=== PATIENT | male | born 1985 | race Caucasian/White ===

== ENCOUNTER 2016-10-27 08:22 | Emergency (ER) | payer SELFPAY ==
[2016-10-27] MEDS ORDERED: Ketorolac 60 MG/2 ML SDV IM ONE (08:38)
--- NOTE | 2016-10-27 08:43 | EDM.PDOC ---
ED HPI GENERAL MEDICAL PROBLEM - General Chief Complaint: Back Pain or Injury Stated Complaint: FELL, HURT BACK Time Seen by Provider: 10/27/16 08:35 - History of Present Illness INITIAL COMMENTS - FREE TEXT/NARRATIVE: HISTORY AND PHYSICAL: History of present illness: The patient is a healthy 31-year-old male who presents after slipping and falling on wet stairs while at home landing on his mid back. The patient states he was in good health with no systemic complaints prior to these events and impacted his butt and his mid back area but does not have any pain to his buttocks or his lower back and complains of pain mostly in the midthoracic area off to the right. He has no weakness he did not hit his head pass out or blackout and has no neck or head pain. He states the pain is worse with movements and it does not radiate to his legs. Patient has a history of a "pinched nerve in his back" for which he was treated with anti-inflammatories and muscle relaxers but he does not have any formal back diagnosis. He has no discrete flank pain and no weakness numbness or tingling in his lower extremities. He has no chest pain or rib pain. He is not short of breath and took no medications prior to coming here Review of systems: As per history of present illness and below otherwise all systems reviewed and negative. Past medical history: As per history of present illness and as reviewed below otherwise noncontributory. Surgical history: As per history of present illness and as reviewed below otherwise noncontributory. Social history: No reported history of drug or alcohol abuse. Family history: As per history of present illness and as reviewed below otherwise noncontributory. Physical exam: Gen.: Well-developed well-nourished man who is nontoxic and moves easily in the ED. Vital signs been noted by me HEENT: Atraumatic, normocephalic, negative for conjunctival pallor or scleral icterus, mucous membranes moist, throat clear, neck supple, nontender, trachea midline. There are no midline step-off surface defects of the cervical spine Lungs: Clear to auscultation, breath sounds equal bilaterally, chest nontender. No bony rib tenderness in the upper right back but in the lower ribs there is some questionable tenderness on palpation without crepitus deformities ecchymosis or erythema Heart: S1S2, regular, negative for clicks, rubs, or JVD. Abdomen: Soft, nondistended, nontender. Negative for costovertebral tenderness. Pelvis: Stable nontender. Genitourinary: Deferred. Rectal: Deferred. Extremities: Atraumatic, negative for cords or calf pain. Neurovascular unremarkable. Full range of motion without defects or deficits Neuro: Awake, alert, oriented. Cranial nerves II through XII unremarkable. Cerebellum unremarkable. Motor and sensory unremarkable throughout. Exam nonfocal. Dorsi and plantar flexion is 5/5 bilaterally inclusive of the great toe Back: There are no midline step-off surface defects of the thoracic or lumbar spine no soft tissue swelling erythema ecchymosis or injury is visualized. There is tenderness just to the right side of the thoracic spine and the lower rib area without palpable deformities. Diagnostics: X-ray thoracic spine and right ribs Therapeutics: Toradol Impression: Fall with right thoracic spine contusion Definitive disposition and diagnosis as appropriate pending reevaluation and review of above. Right Back Pain Score (Numeric/FACES): 7 - Related Data Allergies Allergy/AdvReac Type Severity Reaction Status Date / Time latex Allergy Hives Verified 10/27/16 08:35 Home Meds: Home Meds . [No Known Home Meds] 10/27/16 [History] ED ROS GENERAL - Review of Systems Review Of Systems: ROS reveals no pertinent complaints other than HPI. ED EXAM, GENERAL - Physical Exam Exam: See Below (See dictation) Course - Vital Signs Last Recorded V/S: Last Vital Signs Temp 36.2 C 10/27/16 08:37 Pulse 75 10/27/16 08:37 Resp 18 10/27/16 08:37 BP 134/74 10/27/16 08:37 Pulse Ox 97 10/27/16 08:37 - Orders/Labs/Meds Meds: Medications Discontinued Medications Generic Name Dose Route Start Last Admin Trade Name Freq PRN Reason Stop Dose Admin Ketorolac Tromethamine 60 mg 10/27/16 08:38 10/27/16 08:50 Toradol IM 10/27/16 08:39 60 mg ONETIME ONE Administration Departure - Departure Time of Disposition: 10:30 Disposition: Home, Self-Care 01 Condition: Good Clinical Impression: Contusion of back Qualifiers: Encounter type: initial encounter Laterality: right Qualified Code(s): S20.221A - Contusion of right back wall of thorax, initial encounter - Discharge Information Forms: ED Department Discharge Additional Instructions: The following information is given to patients seen in the emergency department who are being discharged to home. This information is to outline your options for follow-up care. We provide all patients seen in our emergency department with a follow-up referral. The need for follow-up, as well as the timing and circumstances, are variable depending upon the specifics of your emergency department visit. If you don't have a primary care physician on staff, we will provide you with a referral. We always advise you to contact your personal physician following an emergency department visit to inform them of the circumstance of the visit and for follow-up with them and/or the need for any referrals to a consulting specialist. The emergency department will also refer you to a specialist when appropriate. This referral assures that you have the opportunity for followup care with a specialist. All of these measure are taken in an effort to provide you with optimal care, which includes your followup. Under all circumstances we always encourage you to contact your private physician who remains a resource for coordinating your care. When calling for followup care, please make the office aware that this follow-up is from your recent emergency room visit. If for any reason you are refused follow-up, please contact the [facility] emergency department at and ask to speak to the emergency department charge nurse. [facility] Primary care- Internal Medicine and Family [address] [address] Use ice to areas of pain and try to stretch and open the area to prevent muscle spasm. Use vacations as prescribed and needed. Follow-up with primary care and return to ER as needed and as discussed
--- NOTE | 2016-10-27 10:17 | CR ---
EXAMINATION: Thoracic spine HISTORY: Fall COMPARISON: None TECHNIQUE: AP and lateral views FINDINGS: The thoracic spinal alignment is normal. The vertebral body heights and disc spaces appear well-maintained. There is no fracture or dislocation. The vertebral body heights and disc spaces ap pear well-maintained. IMPRESSION: Grossly unremarkable thoracic spine.
--- NOTE | 2016-10-27 10:19 | CR ---
EXAMINATION: Right RIBS HISTORY: Fall COMPARISON: None TECHNIQUE: 2 views FINDINGS/IMPRESSION: There is no acute osseous abnormality or displaced rib fracture identified. Bon e mineralization appears normal. No pleural effusion or pneumothorax.
[2016-10-27 10:46] VITALS: BP 157/73
== END 2016-10-27 10:43 | disposition home or self-care (01) ==
LOC: MW.ED 08:22
DX: S20.221A Contusion of right back wall of thorax, initial encounter (principal); Z91.040 Latex allergy status; W10.8XXA Fall (on) (from) other stairs and steps, initial encounter; Y92.009 Unspecified place in unspecified non-institutional (private) residence as the place of occurrence of the external cause
CPT/HCPCS: 71100; 72072; 96372; 99283; J1885

== ENCOUNTER 2016-11-11 15:47 | Emergency (ER) | payer SELFPAY ==
[2016-11-11] MEDS ORDERED: Aspirin 81 MG Tab.Chew PO ONE (15:59)
[2016-11-11] MEDS ORDERED: Famotidine 20 MG/2 ML SDV IVPUSH ONE (15:59)
[2016-11-11] MEDS ORDERED: Sodium Chloride 0.9% 2.5 ML Syringe FLUSH PRN (15:59)
[2016-11-11] MEDS ORDERED: Sodium Chloride 0.9% 1,000 ML IV ONE (15:59)
[2016-11-11] MEDS ORDERED: Sodium Chloride 0.9% 10 ML Syringe FLUSH PRN (15:59)
--- NOTE | 2016-11-11 16:05 | EDM.PDOC ---
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 Past medical history: As per history of present illness and as reviewed below otherwise noncontributory. Surgical history: As per history of present illness and as reviewed below otherwise noncontributory. Social history: No reported history of drug or alcohol abuse. Family history: As per history of present illness and as reviewed below otherwise noncontributory. Physical exam: Alert and oriented male speaking somewhat breath only in full sentences. Strong odor of tobacco present. HEENT: Atraumatic, normocehpalic, pupils reactive, negative for conjunctival pallor or scleral icterus, mucous membranes dry, throat clear, neck supple, nontender, trachea midline. Tongue is coated. Lungs: Clear to auscultation, breath sounds equal bilaterally, chest non tender. Shallow diminished bilaterally Heart: S1S2, regular, negative for clicks, rubs, or JVD. Abdomen: Soft, nondistended, nontender. Negative for masses or hepatossplenmegaly. Negative for costovertebral tenderness. Pelvis: Stable nontender. Genitourinary: Deferred. Rectal: Deferred Extremities: Atraumatic, negative for cords or calf pain. Neurovascular unremarkable. Neuro: Awake, alert, oriented. Cranial nerves II through XII unremarkable. Cerebellum unremarkable. Motor and sensory unremarkable throughout. Exam nonfocal. Neurologic grossly intact. Full strength to all extremities Discussed with patient all the negative reports nothing to indicate cardiovascular incident or stroke Patient refuses urine sample Diagnostics: [CBC CMP troponin amylase lipase urine drug screen UA] Therapeutics: [] Impression: [Mild dehydration/hyper-ventilation] Plan: [Home and rest today Follow up with your primary care provider return to the emergency room should her symptoms worsen ] Definitive disposition and diagnosis as appropriate pending reevaluation and review of above. Onset: Gradual Duration: Day(s): (3) - Related Data Allergies Allergy/AdvReac Type Severity Reaction Status Date / Time latex Allergy Hives Verified 11/11/16 15:57 Home Meds: Home Meds . [No Known Home Meds] 10/27/16 [History] Past Medical History - Past Health History Medical/Surgical History: Denies Medical/Surgical History HEENT History: Reports: None Cardiovascular History: Reports: None Respiratory History: Reports: Asthma Gastrointestinal History: Reports: None Genitourinary History: Reports: None Musculoskeletal History: Reports: Other (See Below) Other Musculoskeletal History: Hx sciatica Neurological History: Reports: None Psychiatric History: Reports: None Endocrine/Metabolic History: Reports: None Hematologic History: Reports: None Immunologic History: Reports: None Oncologic (Cancer) History: Reports: None Dermatologic History: Reports: None - Infectious Disease History Infectious Disease History: Reports: Chicken Pox - Past Surgical History Head Surgeries/Procedures: Reports: None Social & Family History - Family History Family Medical History: Noncontributory - Tobacco Use Smoking Status *Q: Current Every Day Smoker Years of Tobacco use: 17 Packs/Tins Daily: 0.5 - Recreational Drug Use Recreational Drug Use: No ED ROS GENERAL - Review of Systems Review Of Systems: ROS reveals no pertinent complaints other than HPI. ED EXAM, GENERAL - Physical Exam Exam: See Below (See dictation) Course - Vital Signs Last Recorded V/S: Last Vital Signs Temp 36.4 C 11/11/16 15:54 Pulse 104 H 11/11/16 15:54 Resp 24 H 11/11/16 15:54 BP 138/96 H 11/11/16 15:54 Pulse Ox 98 11/11/16 15:54 - Orders/Labs/Meds Orders: Active Orders 24 hr Category Date Time Status Cardiac Monitoring [RC] . DIRECTED Care 11/11/16 15:59 Active EKG Documentation Completion [RC] STAT Care 11/11/16 15:59 Active Oxygen Therapy [RC] ASDIRECTED Care 11/11/16 15:59 Active DRUG SCREEN, URINE [URCHEM] Stat Lab 11/11/16 16:01 Uncollected UA W/MICROSCOPIC [URIN] Stat Lab 11/11/16 15:59 Uncollected Sodium Chloride 0.9% [Saline Flush] Med 11/11/16 15:59 Active 10 ml FLUSH ASDIRECTED PRN Sodium Chloride 0.9% [Saline Flush] Med 11/11/16 15:59 Active 2.5 ml FLUSH ASDIRECTED PRN Saline Lock Insert [OM.PC] Stat Oth 11/11/16 15:59 Ordered Medication Orders Sodium Chloride (Saline Flush) 10 ml FLUSH ASDIRECTED PRN PRN Reason: Keep Vein Open Sodium Chloride (Saline Flush) 2.5 ml FLUSH ASDIRECTED PRN PRN Reason: Keep Vein Open Labs: Laboratory Tests 11/11/16 11/11/16 11/11/16 Range/Units 16:04 16:04 16:04 WBC 12.44 H (4.0-11.0) K/uL RBC 5.43 (4.50-5.90) M/uL Hgb 16.7 (13.0-17.0) g/dL Hct 46.5 (38.0-50.0) % MCV 85.6 (80.0-98.0) fL MCH 30.8 (27.0-32.0) pg MCHC 35.9 (31.0-37.0) g/dL RDW Std Deviation 39.8 (28.0-62.0) fl RDW Coeff of Susan 13 (11.0-15.0) % Plt Count 250 (150-400) K/uL MPV 10.00 (7.40-12.00) fL Neut % (Auto) 65.6 (48.0-80.0) % Lymph % (Auto) 21.3 (16.0-40.0) % [place] % (Auto) 12.0 (0.0-15.0) % Eos % (Auto) 0.9 (0.0-7.0) % Baso % (Auto) 0.2 (0.0-1.5) % Neut # (Auto) 8.2 H (1.4-5.7) K/uL Lymph # (Auto) 2.7 H (0.6-2.4) K/uL [place] # (Auto) 1.5 H (0.0-0.8) K/uL Eos # (Auto) 0.1 (0.0-0.7) K/uL Baso # (Auto) 0.0 (0.0-0.1) K/uL Nucleated RBC % 0.0 /100WBC Nucleated RBCs # 0 K/uL Sodium 136 (136-146) mmol/L Potassium 3.9 (3.5-5.1) mmol/L Chloride 105 (98-110) mmol/L Carbon Dioxide 17 L (21-31) mmol/L BUN 29 H (6.0-23.0) mg/dL Creatinine 1.2 (0.6-1.5) mg/dL Est Cr Clr Drug Dosing 86.38 mL/min Estimated GFR (MDRD) > 60.0 ml/min Glucose 98 (60-110) mg/dL Calcium 10.0 (8.8-10.8) mg/dL Total Bilirubin 1.6 H (0.1-1.5) mg/dL AST 35 (5-40) IU/L ALT 27 (8-54) IU/L Alkaline Phosphatase 55 (40-150) Troponin I < 0.10 (0.0-0.29) NG/ML Total Protein 8.7 H (6.0-8.0) g/dL Albumin 4.9 (3.5-5.0) g/dL Globulin 3.8 H (2.0-3.5) g/dL Albumin/Globulin Ratio 1.3 (1.3-2.8) Amylase 42 (10-90) U/L Lipase 20 (7-80) U/L Meds: Medications Generic Name Dose Route Start Last Admin Trade Name Freq PRN Reason Stop Dose Admin Sodium Chloride 10 ml 11/11/16 15:59 Saline Flush FLUSH ASDIRECTED PRN Keep Vein Open Sodium Chloride 2.5 ml 11/11/16 15:59 Saline Flush FLUSH ASDIRECTED PRN Keep Vein Open Discontinued Medications Generic Name Dose Route Start Last Admin Trade Name Freq PRN Reason Stop Dose Admin Aspirin 324 mg 11/11/16 15:59 11/11/16 16:23 Aspirin PO 11/11/16 16:00 324 mg ONETIME ONE Administration Famotidine 20 mg 11/11/16 15:59 11/11/16 16:25 Pepcid IVPUSH 11/11/16 16:00 20 mg ONETIME ONE Administration Sodium Chloride 1,000 mls @ 999 mls/hr 11/11/16 15:59 11/11/16 16:22 Normal Saline IV 11/11/16 16:59 999 mls/hr .Bolus ONE Administration Departure - Departure Time of Disposition: 17:22 Disposition: Home, Self-Care 01 Condition: Good Clinical Impression: Hyperventilation, Dehydration - Discharge Information Forms: ED Department Discharge - My Orders Last 24 Hours: My Active Orders 11/11/16 15:59 Cardiac Monitoring [RC] . DIRECTED EKG Documentation Completion [RC] STAT Oxygen Therapy [RC] ASDIRECTED UA W/MICROSCOPIC [URIN] Stat Sodium Chloride 0.9% [Saline Flush] 10 ml FLUSH ASDIRECTED PRN Sodium Chloride 0.9% [Saline Flush] 2.5 ml FLUSH ASDIRECTED PRN Saline Lock Insert [OM.PC] Stat 11/11/16 16:01 DRUG SCREEN, URINE [URCHEM] Stat - Assessment/Plan Last 24 Hours: My Active Orders 11/11/16 15:59 Cardiac Monitoring [RC] . DIRECTED EKG Documentation Completion [RC] STAT Oxygen Therapy [RC] ASDIRECTED UA W/MICROSCOPIC [URIN] Stat Sodium Chloride 0.9% [Saline Flush] 10 ml FLUSH ASDIRECTED PRN Sodium Chloride 0.9% [Saline Flush] 2.5 ml FLUSH ASDIRECTED PRN Saline Lock Insert [OM.PC] Stat 11/11/16 16:01 DRUG SCREEN, URINE [URCHEM] Stat
--- NOTE | 2016-11-11 16:28 | CR ---
EXAMINATION: Portable chest radiograph. HISTORY: Shortness of breath. FINDINGS: The trachea is midline. The cardiomediastinal silhouette is within normal limits. No pulmonary infil trates, effusions or pneumothorax. Osseous structures appear unremarkable. IMPRESSION: No acute cardiopulmonary process.
[2016-11-11 16:39] LABS: CHLORIDE,CL 105 mmol/L (98-110); SODIUM,NA 136 mmol/L (136-146)
[2016-11-11 22:52] VITALS: BP 118/63
== END 2016-11-11 17:37 | disposition home or self-care (01) ==
LOC: MW.ED 15:47
DX: F45.8 Other somatoform disorders (principal); E86.0 Dehydration; J45.909 Unspecified asthma, uncomplicated; F17.210 Nicotine dependence, cigarettes, uncomplicated; Z91.040 Latex allergy status
CPT/HCPCS: 36415; 71010; 80053; 82150; 83690; 84484; 85025; 93005; 96361; 96374; 99285; A9270; J7040; 99284

== ENCOUNTER 2017-02-19 16:16 | Emergency (ER) | payer OTHER ==
[2017-02-19] MEDS ORDERED: Lidocaine 2% Viscous Solution 15 ML Cup PO ONE (16:51)
[2017-02-19] MEDS ORDERED: Benzocaine 20% Topical Spray UD MUCMEM ONE (16:51)
--- NOTE | 2017-02-19 16:52 | EDM.PDOC ---
ED HPI GENERAL MEDICAL PROBLEM - General Chief Complaint: ENT Problem Stated Complaint: TOOTHACHE Time Seen by Provider: 02/19/17 16:48 Source of Information: Reports: Patient History Limitations: Reports: No Limitations - History of Present Illness INITIAL COMMENTS - FREE TEXT/NARRATIVE: HISTORY AND PHYSICAL: [] 31-year-old male presenting with a fractured tooth History of Present Illness: []Patient states it was hurting prior to yesterday ago but he broke off that piece yesterday tooth is #18 Review of Systems: As per history of present illness and below otherwise all systems reviewed and negative. Past medical history: As per history of present illness and as reviewed below otherwise noncontributory. Surgical history: As per history of present illness and as reviewed below otherwise noncontributory. Social history: No reported history of drug or alcohol abuse. Family history: As per history of present illness and as reviewed below otherwise noncontributory. Physical exam: Alert male who answers questions appropriately not short of breath with speaking is nontoxic in appearance. HEENT: Atraumatic, normocehpalic, pupils reactive, negative for conjunctival pallor or scleral icterus, mucous membranes moist, throat clear, neck supple, nontender, trachea midline. Tooth #18 missing and third of the tooth. Patient denies pain with air hitting his tooth .Patient is refusing to have packing placed. Mild edema is noted with them to the mandible. Lungs: Clear to auscultation, breath sounds equal bilaterally, chest non tender. Heart: S1S2, regular, negative for clicks, rubs, or JVD. Abdomen: Soft, nondistended, nontender. Negative for masses or hepatossplenmegaly. Negative for costovertebral tenderness. Pelvis: Stable nontender. Genitourinary: Deferred. Rectal: Deferred Extremities: Atraumatic, negative for cords or calf pain. Neurovascular unremarkable. Neuro: Awake, alert, oriented. Cranial nerves II through XII unremarkable. Cerebellum unremarkable. Motor and sensory unremarkable throughout. Exam nonfocal. Diagnostics: [] Therapeutics: [Dental balls] Impression: [Fracture tooth] Plan: [Discharged to home Antibiotic therapy amoxicillin Follow-up with your dentist as previously scheduled for next week] Definitive disposition and diagnosis as appropriate pending reevaluation and review of above. toothache Pain Score (Numeric/FACES): 10 - Related Data Allergies Allergy/AdvReac Type Severity Reaction Status Date / Time latex Allergy Hives Verified 02/19/17 16:38 tramadol Allergy Nausea and Verified 02/19/17 16:38 Vomiting Home Meds: Home Meds . [No Known Home Meds] 10/27/16 [History] Past Medical History - Past Health History Medical/Surgical History: Denies Medical/Surgical History HEENT History: Reports: None Cardiovascular History: Reports: None Respiratory History: Reports: Asthma Gastrointestinal History: Reports: None Genitourinary History: Reports: None Musculoskeletal History: Reports: Other (See Below) Other Musculoskeletal History: Hx sciatica Neurological History: Reports: None Psychiatric History: Reports: None Endocrine/Metabolic History: Reports: None Hematologic History: Reports: None Immunologic History: Reports: None Oncologic (Cancer) History: Reports: None Dermatologic History: Reports: None - Infectious Disease History Infectious Disease History: Reports: None - Past Surgical History Head Surgeries/Procedures: Reports: None Social & Family History - Family History Family Medical History: Noncontributory - Tobacco Use Smoking Status *Q: Current Every Day Smoker Years of Tobacco use: 17 Packs/Tins Daily: 0.5 - Caffeine Use Caffeine Use: Reports: Energy Drinks - Recreational Drug Use Recreational Drug Use: No ED ROS ENT - Review of Systems Review Of Systems: ROS reveals no pertinent complaints other than HPI. ED EXAM, ENT - Physical Exam Exam: See Below (see dictation) Course - Vital Signs Last Recorded V/S: Last Vital Signs Temp 36.6 C 02/19/17 16:38 Pulse 71 02/19/17 16:38 Resp 18 02/19/17 16:38 BP 138/92 H 02/19/17 16:38 Pulse Ox 98 02/19/17 16:38 Departure - Departure Time of Disposition: 16:51 Disposition: Home, Self-Care 01 Condition: Good Clinical Impression: Fracture of tooth Qualifiers: Encounter type: initial encounter Fracture type: closed Qualified Code(s): S02.5XXA - Fracture of tooth (traumatic), initial encounter for closed fracture - Discharge Information Referrals: PCP,None [Primary Care Provider] -
[2017-02-19 17:09] VITALS: BP 155/102
== END 2017-02-19 17:00 | disposition home or self-care (01) ==
LOC: MW.ED 16:16
DX: K03.81 Cracked tooth (principal); F17.210 Nicotine dependence, cigarettes, uncomplicated; Z91.040 Latex allergy status; Z88.5 Allergy status to narcotic agent
CPT/HCPCS: 99282; A9270; 99283

== ENCOUNTER 2017-06-20 08:00 | Emergency (ER) | payer SELFPAY ==
[2017-06-20] MEDS ORDERED: Ondansetron 4 MG Tab.DIS PO ONE (08:17)
--- NOTE | 2017-06-20 08:20 | EDM.PDOC ---
ED HPI GENERAL MEDICAL PROBLEM - General Chief Complaint: General Stated Complaint: fever, vomiting sore throat, body chills Time Seen by Provider: 06/20/17 08:10 - History of Present Illness INITIAL COMMENTS - FREE TEXT/NARRATIVE: HISTORY AND PHYSICAL: History of present illness: The patient is a 31-year-old male who presents with a 2 day history of cough fever and body aches nausea intermittent vomiting for which he like to be evaluated. The patient said he had a fever this morning and he took medications and now he is afebrile. He's had a cough productive of some phlegm and he has a history of smoking. He has no ill contacts at home but he did not get his flu shot this year. He does not have a specific runny nose but he does have the sore throat and no abdominal pain chest pain or shortness of breath. Patient told nursing that he was having vomiting when I discussed this with them it is intermittent and is able to tolerate fluids and eat in between. Review of systems: As per history of present illness and below otherwise all systems reviewed and negative. Past medical history: As per history of present illness and as reviewed below otherwise noncontributory. Surgical history: As per history of present illness and as reviewed below otherwise noncontributory. Social history: No reported history of drug or alcohol abuse. Family history: As per history of present illness and as reviewed below otherwise noncontributory. Physical exam: Gen.: Well-developed well-nourished man who is nontoxic and speaking clearly in the ED without hoarse or muffled voice and no breathlessness. He is afebrile with stable vitals HEENT: Atraumatic, normocephalic, pupils reactive, negative for conjunctival pallor or scleral icterus, mucous membranes moist, throat clear, neck supple, nontender, trachea midline. The posterior oropharynx is slightly reddened but there are no exudates and there is no cervical adenopathy or nuchal rigidity Lungs: Clear to auscultation, breath sounds equal bilaterally, chest nontender. No wheezing stridor or work of breathing Heart: S1S2, regular rate and rhythm no overt murmurs Abdomen: Soft, nondistended, nontender. NABS. Pelvis: Stable nontender. Genitourinary: Deferred. Rectal: Deferred. Extremities: Atraumatic, negative for cords or calf pain. Neurovascular unremarkable. Neuro: Awake, alert, oriented. Cranial nerves II through XII unremarkable. Cerebellum unremarkable. Motor and sensory unremarkable throughout. Exam nonfocal. Diagnostics: Rapid strep influenza Therapeutics: Taman Impression: Viral illness Definitive disposition and diagnosis as appropriate pending reevaluation and review of above. - Related Data Allergies Allergy/AdvReac Type Severity Reaction Status Date / Time latex Allergy Hives Verified 02/19/17 16:38 tramadol Allergy Nausea and Verified 02/19/17 16:38 Vomiting Home Meds: Home Meds . [No Known Home Meds] 06/20/17 [History] Past Medical History - Past Health History Medical/Surgical History: Denies Medical/Surgical History HEENT History: Reports: None Cardiovascular History: Reports: None Respiratory History: Reports: Asthma Gastrointestinal History: Reports: None Genitourinary History: Reports: None Musculoskeletal History: Reports: Other (See Below) Other Musculoskeletal History: Hx sciatica Neurological History: Reports: None Psychiatric History: Reports: None Endocrine/Metabolic History: Reports: None Hematologic History: Reports: None Immunologic History: Reports: None Oncologic (Cancer) History: Reports: None Dermatologic History: Reports: None - Infectious Disease History Infectious Disease History: Reports: None - Past Surgical History Head Surgeries/Procedures: Reports: None Social & Family History - Family History Family Medical History: Noncontributory - Tobacco Use Smoking Status *Q: Current Every Day Smoker Years of Tobacco use: 17 Packs/Tins Daily: 0.5 - Caffeine Use Caffeine Use: Reports: Energy Drinks - Recreational Drug Use Recreational Drug Use: No ED ROS GENERAL - Review of Systems Review Of Systems: ROS reveals no pertinent complaints other than HPI. ED EXAM, GENERAL - Physical Exam Exam: See Below (see dictation) Course - Vital Signs Last Recorded V/S: Last Vital Signs Temp 36.1 C 06/20/17 08:14 Pulse 70 06/20/17 08:14 Resp 16 06/20/17 08:14 BP 127/73 06/20/17 08:14 Pulse Ox 96 06/20/17 08:14 - Orders/Labs/Meds Orders: Active Orders 24 hr Category Date Time Status CULTURE STREP A CONFIRMATION [RM] Stat Lab 06/20/17 08:25 Results STREP SCRN A RAPID W CULT CONF [RM] Stat Lab 06/20/17 08:25 Results Meds: Medications Discontinued Medications Generic Name Dose Route Start Last Admin Trade Name Edwige PRN Reason Stop Dose Admin Ondansetron HCl 4 mg 06/20/17 08:17 06/20/17 08:26 Zofran Odt PO 06/20/17 08:18 4 mg ONETIME ONE Administration Departure - Departure Time of Disposition: : Disposition: Home, Self-Care 01 Condition: Good Clinical Impression: Viral illness - Discharge Information Referrals: PCP,None [Primary Care Provider] - Forms: ED Department Discharge Additional Instructions: The following information is given to patients seen in the emergency department who are being discharged to home. This information is to outline your options for follow-up care. We provide all patients seen in our emergency department with a follow-up referral. The need for follow-up, as well as the timing and circumstances, are variable depending upon the specifics of your emergency department visit. If you don't have a primary care physician on staff, we will provide you with a referral. We always advise you to contact your personal physician following an emergency department visit to inform them of the circumstance of the visit and for follow-up with them and/or the need for any referrals to a consulting specialist. The emergency department will also refer you to a specialist when appropriate. This referral assures that you have the opportunity for followup care with a specialist. All of these measure are taken in an effort to provide you with optimal care, which includes your followup. Under all circumstances we always encourage you to contact your private physician who remains a resource for coordinating your care. When calling for followup care, please make the office aware that this follow-up is from your recent emergency room visit. If for any reason you are refused follow-up, please contact the [facility] emergency department at and ask to speak to the emergency department charge nurse. [facility] Primary care- Internal Medicine and Family [address] [id number] Push hydration and rest as much as possible. Please use [id number] Tylenol or ibuprofen for fever and body aches and use cough medicine prescribed as needed but only take at home. Please call and follow-up with her clinic provider is in the next few days for further care and reevaluation and return to ER as needed and as discussed - My Orders Last 24 Hours: My Active Orders 06/20/17 08:25 CULTURE STREP A CONFIRMATION [RM] Stat STREP SCRN A RAPID W CULT CONF [RM] Stat - Assessment/Plan Last 24 Hours: My Active Orders 06/20/17 08:25 CULTURE STREP A CONFIRMATION [RM] Stat STREP SCRN A RAPID W CULT CONF [] Stat
[2017-06-20 09:39] VITALS: BP 134/87
== END 2017-06-20 09:37 | disposition home or self-care (01) ==
LOC: MW.ED 08:00
DX: B34.9 Viral infection, unspecified (principal); F17.210 Nicotine dependence, cigarettes, uncomplicated; Z88.5 Allergy status to narcotic agent; Z91.040 Latex allergy status
CPT/HCPCS: 87081; 87804; 87880; 99283; A9270

== ENCOUNTER 2017-06-23 07:43 | Emergency (ER) | payer SELFPAY ==
[2017-06-23] MEDS ORDERED: Sodium Chloride 0.9% 10 ML Syringe FLUSH PRN (08:02)
[2017-06-23] MEDS ORDERED: Ketorolac 30 MG/ML SDV IVPUSH ONE (08:02)
[2017-06-23] MEDS ORDERED: Sodium Chloride 0.9% 1,000 ML IV ONE (08:02)
[2017-06-23] MEDS ORDERED: Sodium Chloride 0.9% 2.5 ML Syringe FLUSH PRN (08:02)
--- NOTE | 2017-06-23 08:03 | EDM.PDOC ---
ED HPI GENERAL MEDICAL PROBLEM - General Stated Complaint: FEELING ILL Time Seen by Provider: 06/23/17 07:48 Source of Information: Reports: Patient History Limitations: Reports: No Limitations - History of Present Illness INITIAL COMMENTS - FREE TEXT/NARRATIVE: History of present illness: []Patient has been having abdominal pain for 4 days. It's in his right flank radiating to his right lower quadrant. He states his urine is dark but has been drinking lots of fluids secondary to viral syndrome last week. He denies any fevers, vomiting or diarrhea. Review of systems: As per history of present illness and below otherwise all systems reviewed and negative. Past medical history: As per history of present illness and as reviewed below otherwise noncontributory. Surgical history: As per history of present illness and as reviewed below otherwise noncontributory. Social history: No reported history of drug or alcohol abuse. Family history: As per history of present illness and as reviewed below otherwise noncontributory. Physical exam: General: Well developed, well nourished in NAD HEENT: Atraumatic, normocephalic, pupils reactive, negative for conjunctival pallor or scleral icterus, mucous membranes moist, throat clear, neck supple, nontender, trachea midline. Lungs: Clear to auscultation, breath sounds equal bilaterally, chest nontender. Heart: S1S2, regular, negative for clicks, rubs, or JVD. Abdomen: Soft, nondistended, nontender. Negative for masses or hepatosplenomegaly. Negative for costovertebral tenderness. Pelvis: Stable nontender. Genitourinary: Deferred. Rectal: Deferred. Extremities: Atraumatic, negative for cords or calf pain. Neurovascular unremarkable. Neuro: Awake, alert, oriented. Cranial nerves II through XII unremarkable. Cerebellum unremarkable. Motor and sensory unremarkable throughout. Exam nonfocal. Diagnostics: []Labs are normal no elevation of white count urine shows no blood Therapeutics: []Toradol given while in the ED and hydrated with resolution of pain Impression: []Dehydration Plan: []Increase fluids follow-up with PMD as needed Definitive disposition and diagnosis as appropriate pending reevaluation and review of above. right flank Pain Score (Numeric/FACES): 6 - Related Data Allergies Allergy/AdvReac Type Severity Reaction Status Date / Time latex Allergy Hives Verified 06/23/17 07:53 tramadol Allergy Nausea and Verified 06/23/17 07:53 Vomiting Home Meds: Home Meds . [No Known Home Meds] 06/20/17 [History] Past Medical History - Past Health History Medical/Surgical History: Denies Medical/Surgical History HEENT History: Reports: None Cardiovascular History: Reports: None Respiratory History: Reports: Asthma Gastrointestinal History: Reports: None Genitourinary History: Reports: None Musculoskeletal History: Reports: Other (See Below) Other Musculoskeletal History: Hx sciatica Neurological History: Reports: None Psychiatric History: Reports: None Endocrine/Metabolic History: Reports: None Hematologic History: Reports: None Immunologic History: Reports: None Oncologic (Cancer) History: Reports: None Dermatologic History: Reports: None - Infectious Disease History Infectious Disease History: Reports: None - Past Surgical History Head Surgeries/Procedures: Reports: None Social & Family History - Family History Family Medical History: Noncontributory - Tobacco Use Smoking Status *Q: Current Every Day Smoker Years of Tobacco use: 17 Packs/Tins Daily: 0.5 Used Tobacco, but Quit: No - Caffeine Use Caffeine Use: Reports: Energy Drinks - Recreational Drug Use Recreational Drug Use: No ED ROS GENERAL - Review of Systems Review Of Systems: See Below (See history of present illness) ED EXAM, GENERAL - Physical Exam Exam: See Below (See history of present illness) Course - Vital Signs Last Recorded V/S: Last Vital Signs Temp 97.0 F 06/23/17 07:50 Pulse 75 06/23/17 09:25 Resp 18 06/23/17 09:25 BP 131/81 06/23/17 09:25 Pulse Ox 99 06/23/17 09:25 - Orders/Labs/Meds Orders: Active Orders 24 hr Category Date Time Status Saline Lock Insert [OM.PC] Stat Oth 06/23/17 08:01 Ordered Labs: Laboratory Tests 06/23/17 06/23/17 06/23/17 Range/Units 07:55 08:09 08:09 WBC 7.57 (4.0-11.0) K/uL RBC 5.47 (4.50-5.90) M/uL Hgb 16.7 (13.0-17.0) g/dL Hct 49.4 (38.0-50.0) % MCV 90.3 (80.0-98.0) fL MCH 30.5 (27.0-32.0) pg MCHC 33.8 (31.0-37.0) g/dL RDW Std Deviation 41.9 (28.0-62.0) fl RDW Coeff of Susan 13 (11.0-15.0) % Plt Count 212 (150-400) K/uL MPV 10.10 (7.40-12.00) fL Neut % (Auto) 58.3 (48.0-80.0) % Lymph % (Auto) 31.0 (16.0-40.0) % [place] % (Auto) 8.7 (0.0-15.0) % Eos % (Auto) 1.7 (0.0-7.0) % Baso % (Auto) 0.3 (0.0-1.5) % Neut # (Auto) 4.4 (1.4-5.7) K/uL Lymph # (Auto) 2.4 (0.6-2.4) K/uL [place] # (Auto) 0.7 (0.0-0.8) K/uL Eos # (Auto) 0.1 (0.0-0.7) K/uL Baso # (Auto) 0.0 (0.0-0.1) K/uL Nucleated RBC % 0.0 /100WBC Nucleated RBCs # 0 K/uL Sodium 139 (136-146) mmol/L Potassium 4.0 (3.5-5.1) mmol/L Chloride 104 (98-110) mmol/L Carbon Dioxide 27 (21-31) mmol/L BUN 14 (6.0-23.0) mg/dL Creatinine 0.9 (0.6-1.5) mg/dL Est Cr Clr Drug Dosing 121.67 mL/min Estimated GFR (MDRD) > 60.0 ml/min Glucose 136 H (60-110) mg/dL Calcium 9.9 (8.8-10.8) mg/dL Total Bilirubin 0.5 (0.1-1.5) mg/dL AST 24 (5-40) IU/L ALT 34 (8-54) IU/L Alkaline Phosphatase 59 (40-150) Total Protein 8.5 H (6.0-8.0) g/dL Albumin 4.7 (3.5-5.0) g/dL Globulin 3.8 H (2.0-3.5) g/dL Albumin/Globulin Ratio 1.2 L (1.3-2.8) Lipase 25 (7-80) U/L Urine Color YELLOW Urine Appearance CLEAR Urine pH 6.5 (5.0-8.0) Ur Specific [place] 1.025 (1.001-1.035) Urine Protein NEGATIVE (NEGATIVE) mg/dL Urine Glucose (UA) NEGATIVE (NEGATIVE) mg/dL Urine Ketones NEGATIVE (NEGATIVE) mg/dL Urine Occult Blood NEGATIVE (NEGATIVE) Urine Nitrite NEGATIVE (NEGATIVE) Urine Bilirubin NEGATIVE (NEGATIVE) Urine Urobilinogen 0.2 (<2.0) EU/dL Ur Leukocyte Esterase NEGATIVE (NEGATIVE) Urine RBC 0-1 (0-2/HPF) Urine WBC RARE (0-5/HPF) Ur Epithelial Cells FEW (NONE-FEW) Urine Bacteria NOT SEEN (NEGATIVE) Urine Mucus LIGHT (NONE-MOD) Meds: Medications Discontinued Medications Generic Name Dose Route Start Last Admin Trade Name Freq PRN Reason Stop Dose Admin Sodium Chloride 1,000 mls @ 999 mls/hr 06/23/17 08:02 06/23/17 08:12 Normal Saline IV 06/23/17 09:02 999 mls/hr .Bolus ONE Administration Ketorolac Tromethamine 30 mg 06/23/17 08:02 06/23/17 08:12 Toradol IVPUSH 06/23/17 08:03 30 mg ONETIME ONE Administration Sodium Chloride 10 ml 06/23/17 08:02 Saline Flush FLUSH ASDIRECTED PRN Keep Vein Open Sodium Chloride 2.5 ml 06/23/17 08:02 Saline Flush FLUSH ASDIRECTED PRN Keep Vein Open Departure - Departure Time of Disposition: :18 Disposition: Home, Self-Care 01 Condition: Good Clinical Impression: Dehydration - Discharge Information Instructions: Dehydration, Adult, [id number] Referrals: PCP,None [Primary Care Provider] - Forms: ED Department Discharge Additional Instructions: The following information is given to patients seen in the emergency department who are being discharged to home. This information is to outline your options for follow-up care. We provide all patients seen in our emergency department with a follow-up referral. The need for follow-up, as well as the timing and circumstances, are variable depending upon the specifics of your emergency department visit. If you don't have a primary care physician on staff, we will provide you with a referral. We always advise you to contact your personal physician following an emergency department visit to inform them of the circumstance of the visit and for follow-up with them and/or the need for any referrals to a consulting specialist. The emergency department will also refer you to a specialist when appropriate. This referral assures that you have the opportunity for follow-up care with a specialist. All of these measure are taken in an effort to provide you with optimal care, which includes your follow-up. Under all circumstances we always encourage you to contact your private physician who remains a resource for coordinating your care. When calling for follow-up care, please make the office aware that this follow-up is from your recent emergency room visit. If for any reason you are refused follow-up, please contact the [facility] Emergency Department at and asked to speak to the emergency department charge nurse. [facility] Primary Care [address] [place] [id number] - My Orders Last 24 Hours: My Active Orders 06/23/17 08:01 Saline Lock Insert [OM.PC] Stat - Assessment/Plan Last 24 Hours: My Active Orders 06/23/17 08:01 Saline Lock Insert [OM.PC] Stat
[2017-06-23 09:01] LABS: CHLORIDE,CL 104 mmol/L (98-110); SODIUM,NA 139 mmol/L (136-146)
[2017-06-23 09:30] VITALS: BP 131/81
== END 2017-06-23 09:25 | disposition home or self-care (01) ==
LOC: MW.ED 07:43
DX: E86.0 Dehydration (principal); F17.210 Nicotine dependence, cigarettes, uncomplicated; Z88.5 Allergy status to narcotic agent; Z91.040 Latex allergy status
CPT/HCPCS: 36415; 80053; 81001; 83690; 85025; 96361; 96374; 99284; J1885; J7040; 99283